=== PATIENT | male | born 1950 | race Caucasian/White ===

== ENCOUNTER 2017-09-09 05:14 | Emergency (ER) | payer MEDICARE, OTHER ==
[~2017-09-09] VITALS: Ht 172.7 cm; Wt 82.3 kg
[~2017-09-09 05:14] MED LIST: AMO250C PO; BUPR1FIL5 SL; CLAR250T43 PO; CYCL-1 PO; FLUO20CA39 PO; PANT-47 PO; QUET-1 PO; TRAZ-143 PO
[2017-09-09 05:19] VITALS: BP 123/76
[2017-09-09] MEDS ORDERED: ketorolac trometh. 30mg/ml inj. IM ONE (05:25)
== END 2017-09-09 05:51 | disposition home or self-care (01) ==
LOC: ER 05:14
DX: M54.5 Low back pain (principal); G89.29 Other chronic pain; R20.0 Anesthesia of skin; I25.10 Atherosclerotic heart disease of native coronary artery without angina pectoris; I10 Essential (primary) hypertension
CPT/HCPCS: 96372; 99283; J1885

== ENCOUNTER 2017-09-12 15:45 | Inpatient (IN) | payer MEDICARE, OTHER ==
[~2017-09-12] VITALS: Ht 172.7 cm; Wt 87.1 kg
[2017-09-12] MEDS ORDERED: methylPREDNISolone sod succ 125mg/2ml vial IV ONE (16:20)
[2017-09-12] MEDS ORDERED: albuterol 2.5 MG/3 ML nebule CONTNEB PRN (16:20)
[2017-09-12 16:41] LABS: BASOPHILS % (AUTO) 0.5 % (0-1); EOSINOPHILS # (AUTO) 0.1 X10'3 (0-0.9); EOSINOPHILS % (AUTO) 2.1 % (0-6); HEMOGLOBIN 12.9 g/dl (14.0-17.9); LYMPHOCYTES # (AUTO) 1.9 X10'3 (1.1-4.8); MEAN CORPUSCULAR HEMOGLOBIN 28.5 PG (27.0-31.0); MEAN CORPUSCULAR HGB CONC 33.1 % (33.0-36.5); MEAN CORPUSCULAR VOLUME 85.9 FL (78-98); MEAN PLATELET VOLUME 8.4 FL (7.4-10.4); MONOCYTES # (AUTO) 0.7 X10'3 (0-0.9); MONOCYTES % (AUTO) 10.4 % (2-12); NEUTROPHILS # (AUTO) 4.1 X10'3 (1.8-7.7); PLATELET COUNT 243 X10'3 (140-440); RED BLOOD COUNT 4.54 X10'6 (4.70-6.10); RED CELL DISTRIBUTION WIDTH 15.9 % (11.5-14.5); WHITE BLOOD COUNT 6.9 X10'3 (4.5-11.0)
[2017-09-12] MEDS ORDERED: HYDROmorphone 1 mg/ml syringe IM ONE (16:45)
[2017-09-12 16:55] LABS: ALANINE AMINOTRANSFERASE 21 U/L (12-78); ALBUMIN 3.5 G/DL (3.4-5.0); ALBUMIN/GLOBULIN RATIO 0.9 (1.1-1.5); ALKALINE PHOSPHATASE 82 IU/L (46-116); ANION GAP 8 (8-16); ASPARTATE AMINO TRANSFERASE 12 U/L (10-37); BILIRUBIN,TOTAL 0.2 MG/DL (0.1-1.0); BLOOD UREA NITROGEN 14 MG/DL (7-18); BUN/CREATININE RATIO 14.4 (5.4-32.0); CALCIUM 8.9 MG/DL (8.5-10.1); CHLORIDE 108 MMOL/L (99-107); CREATININE 0.97 MG/DL (0.60-1.10); GLUCOSE 108 MG/DL (70-104); POTASSIUM 4.4 MMOL/L (3.5-5.1); SODIUM 143 MMOL/L (135-145); TOTAL PROTEIN 7.3 G/DL (6.4-8.2); eGFR 77 ML/MIN
[2017-09-12] MEDS ORDERED: HYDROmorphone inj. 0.5 MG/0.5 ML DISP.SYRIN IM ONE (16:55)
[2017-09-12 16:59] LABS: PARTIAL THROMBOPLASTIN TIME 28 SECONDS (22-32); PROTHROMBIN TIME 10.7 SECONDS (9.0-12.0)
[2017-09-12] MEDS ORDERED: aspirin 81mg tab.chew PO ONE (18:30)
[2017-09-12 18:57] LABS: MAGNESIUM 2.2 MG/DL (1.5-2.4)
[2017-09-12] MEDS ORDERED: HYDROmorphone 1 mg/ml syringe IV PRN ×2 (19:25)
[2017-09-12] MEDS ORDERED: diphenhydrAMINE 50 mg/ml inj IV PRN (19:25)
[2017-09-12] MEDS ORDERED: acetaminophen 325mg tablet PO PRN ×2 (19:25)
[2017-09-12] MEDS ORDERED: mag hydrox/Alum hydrox/simeth 30ml oral suspension PO PRN (19:25)
[2017-09-12] MEDS ORDERED: diphenhydrAMINE 25mg capsule PO PRN (19:25)
[2017-09-12] MEDS ORDERED: bisacodyl 10mg suppository rectal RC PRN (19:25)
[2017-09-12] MEDS ORDERED: magnesium hydroxide 30ml (MOM) UD suspension PO PRN (19:25)
[2017-09-12] MEDS ORDERED: acetaminophen 650mg rectal suppository RC PRN (19:25)
[2017-09-12] MEDS ORDERED: HYDROcodone/acetaminophen 5mg/325mg tablet PO PRN (19:25)
[2017-09-12] MEDS ORDERED: ondansetron/PF 4mg/2ml inj IV PRN (19:25)
[2017-09-12] MEDS ORDERED: metoclopramide 5 mg/ml inj IV PRN (19:25)
[2017-09-12 19:51] LABS: PHOSPHORUS 3.8 MG/DL (2.3-4.5)
[2017-09-12 20:04] LABS: D-DIMER 0.27 MG/L FEU (0-0.50)
[2017-09-12] MEDS: normal saline 1000ml 1,000 ML IV SCH (20:16)
[2017-09-12] MEDS ORDERED: temazepam 15mg capsule PO PRN (21:00)
[2017-09-12] MEDS: HYDROcodone/acetaminophen 10/325mg tab PO PRN (21:41)
[2017-09-12 23:24] VITALS: BP 142/93
[2017-09-13] MEDS: heparin, porcine 5000 units/ml vial SQ SCH ×3 (00:11→16:56)
[2017-09-13] MEDS: HYDROcodone/acetaminophen 10/325mg tab PO PRN ×2 (05:16→12:52)
[2017-09-13] MEDS: normal saline 1000ml 1,000 ML IV SCH ×3 (05:28→16:57)
[2017-09-13] MEDS ORDERED: pantoprazole 40mg Tablet.DR PO SCH (07:30)
[2017-09-13 08:00] VITALS: BP 130/82
[2017-09-13] MEDS: lactobacillus rhamnosus 10,000 MMU CELLS/CAPSULE PO SCH ×2 (08:20→16:56)
[2017-09-13] MEDS: azithromycin 250mg tablet PO SCH (08:20)
[2017-09-13 09:57] LABS: BASOPHILS % (AUTO) 0.1 % (0-1); EOSINOPHILS % (AUTO) 0.1 % (0-6); HEMOGLOBIN 11.2 g/dl (14.0-17.9); LYMPHOCYTES # (AUTO) 1.6 X10'3 (1.1-4.8); LYMPHOCYTES % (AUTO) 16.4 % (21-51); MEAN CORPUSCULAR HEMOGLOBIN 28.6 PG (27.0-31.0); MEAN CORPUSCULAR VOLUME 86.7 FL (78-98); MEAN PLATELET VOLUME 8.9 FL (7.4-10.4); MONOCYTES # (AUTO) 1.2 X10'3 (0-0.9); NEUTROPHILS # (AUTO) 7.1 X10'3 (1.8-7.7); NEUTROPHILS % (AUTO) 71.4 % (42-75); PLATELET COUNT 215 X10'3 (140-440); RED BLOOD COUNT 3.92 X10'6 (4.70-6.10); RED CELL DISTRIBUTION WIDTH 14.8 % (11.5-14.5); WHITE BLOOD COUNT 9.9 X10'3 (4.5-11.0)
[2017-09-13 10:17] LABS: ALANINE AMINOTRANSFERASE 15 U/L (12-78); ALBUMIN/GLOBULIN RATIO 0.9 (1.1-1.5); ALKALINE PHOSPHATASE 63 IU/L (46-116); ANION GAP 5 (8-16); ASPARTATE AMINO TRANSFERASE 10 U/L (10-37); BILIRUBIN,TOTAL 0.2 MG/DL (0.1-1.0); BLOOD UREA NITROGEN 15 MG/DL (7-18); CALCIUM 8.8 MG/DL (8.5-10.1); CHLORIDE 108 MMOL/L (99-107); CREATININE 0.75 MG/DL (0.60-1.10); GLUCOSE 106 MG/DL (70-104); POTASSIUM 4.2 MMOL/L (3.5-5.1); SODIUM 141 MMOL/L (135-145); TOTAL CARBON DIOXIDE 28.1 MMOL/L (24-32); TOTAL PROTEIN 6.4 G/DL (6.4-8.2); eGFR > 90 ML/MIN
[2017-09-13 10:18] LABS: CHOL/HDL RATIO 2.2 (0.00-4.99); CHOLESTEROL 145 MG/DL (0-200); HDL CHOLESTEROL 65 MG/DL (35-60); LDL CHOLESTEROL 79 MG/DL (50-100); TRIGLYCERIDES 48 MG/DL (20-135)
[2017-09-13] MEDS ORDERED: cyclobenzaprine 10mg tablet PO PRN (11:45)
[2017-09-13] MEDS: FLUoxetine 20mg capsule PO SCH (12:45)
[2017-09-13 20:00] VITALS: BP_SYST 126; BP_SYST 132; BP_SYST 140; BP_DIAS 77; BP_DIAS 85; BP_DIAS 98
[2017-09-13] MEDS ORDERED: BUPRENORPHINE SL SCH (20:00)
[2017-09-13] MEDS ORDERED: NALOXONE SL SCH (20:00)
[2017-09-13] MEDS ORDERED: quetiapine 100mg tablet PO SCH (21:00)
[2017-09-13] MEDS: pantoprazole 40mg Tablet.DR PO SCH (21:12)
[2017-09-14] VITALS: BP 107/72
[2017-09-14] MEDS: normal saline 1000ml 1,000 ML IV SCH (02:14)
[2017-09-14 06:03] LABS: BASOPHILS % (AUTO) 0.4 % (0-1); EOSINOPHILS # (AUTO) 0.1 X10'3 (0-0.9); EOSINOPHILS % (AUTO) 2.5 % (0-6); HEMATOCRIT 36.8 % (42.0-52.0); HEMOGLOBIN 11.7 g/dl (14.0-17.9); LYMPHOCYTES # (AUTO) 2.1 X10'3 (1.1-4.8); LYMPHOCYTES % (AUTO) 36.5 % (21-51); MEAN CORPUSCULAR HEMOGLOBIN 27.9 PG (27.0-31.0); MEAN CORPUSCULAR HGB CONC 31.9 % (33.0-36.5); MEAN CORPUSCULAR VOLUME 87.5 FL (78-98); MEAN PLATELET VOLUME 9.1 FL (7.4-10.4); MONOCYTES # (AUTO) 0.7 X10'3 (0-0.9); NEUTROPHILS # (AUTO) 2.8 X10'3 (1.8-7.7); NEUTROPHILS % (AUTO) 48.6 % (42-75); PLATELET COUNT 186 X10'3 (140-440); RED BLOOD COUNT 4.21 X10'6 (4.70-6.10); RED CELL DISTRIBUTION WIDTH 15.8 % (11.5-14.5); WHITE BLOOD COUNT 5.9 X10'3 (4.5-11.0)
[2017-09-14 06:34] LABS: ALANINE AMINOTRANSFERASE 16 U/L (12-78); ALBUMIN 3.1 G/DL (3.4-5.0); ALKALINE PHOSPHATASE 57 IU/L (46-116); ANION GAP 3 (8-16); ASPARTATE AMINO TRANSFERASE 10 U/L (10-37); BILIRUBIN,TOTAL 0.3 MG/DL (0.1-1.0); BLOOD UREA NITROGEN 16 MG/DL (7-18); BUN/CREATININE RATIO 18.2 (5.4-32.0); CALCIUM 8.7 MG/DL (8.5-10.1); CHLORIDE 110 MMOL/L (99-107); CREATININE 0.88 MG/DL (0.60-1.10); GLUCOSE 89 MG/DL (70-104); POTASSIUM 4.1 MMOL/L (3.5-5.1); SODIUM 145 MMOL/L (135-145); TOTAL PROTEIN 6.3 G/DL (6.4-8.2); eGFR 87 ML/MIN
[2017-09-14] MEDS: lactobacillus rhamnosus 10,000 MMU CELLS/CAPSULE PO SCH (07:30)
[2017-09-14 07:34] VITALS: BP 150/91
[2017-09-14] MEDS ORDERED: traZODone 150mg tablet PO SCH (08:00)
[2017-09-14] MEDS: FLUoxetine 20mg capsule PO SCH (08:17)
[2017-09-14] MEDS: pantoprazole 40mg Tablet.DR PO SCH (08:17)
[2017-09-14] MEDS: azithromycin 250mg tablet PO SCH (08:18)
[2017-09-14] MEDS: heparin, porcine 5000 units/ml vial SQ SCH ×2 (08:20)
[2017-09-14] MEDS ORDERED: buprenorphine/naloxone 2-0.5mg sublingual tablet SL SCH (08:27)
[2017-09-14] MEDS ORDERED: AZI25OT PO (11:18)
[2017-09-14 11:26] VITALS: BP_SYST 127; BP_SYST 131; BP_SYST 150; BP_DIAS 73; BP_DIAS 86; BP_DIAS 92
[2017-09-14 11:30] VITALS: BP 150/92
== END 2017-09-14 12:34 | disposition home or self-care (01) | DRG 312 ==
LOC: ER 15:46 → ED HOLD 19:22 → SUR 3N 22:15
PROVIDERS: ADMIT Family Medicine; ATTEND Family Medicine
DX: I95.1 Orthostatic hypotension (principal); I07.1 Rheumatic tricuspid insufficiency; J20.9 Acute bronchitis, unspecified; E86.0 Dehydration; I10 Essential (primary) hypertension; I25.10 Atherosclerotic heart disease of native coronary artery without angina pectoris; F32.9 Major depressive disorder, single episode, unspecified; G89.29 Other chronic pain; M54.9 Dorsalgia, unspecified; Z79.899 Other long term (current) drug therapy; Z95.1 Presence of aortocoronary bypass graft
CPT/HCPCS: 36415; 70544; 70547; 70551; 71045; 80053; 80061; 83735; 83880; 84100; 84484; 85025; 85379; 85610; 85730; 87070; 87502; 87503; 93005; 93306; 93880; 95816; 96372; 96374; 99285; J1170; J1644; J2270; J2930; J7030